=== PATIENT | male | born 1990 | race Caucasian/White ===

== ENCOUNTER 2019-09-25 11:10 | Outpatient (CLI) | payer OTHER ==
--- NOTE | 2019-09-25 11:19 | RAD ---
Exam:3 views left hand HISTORY: Pain COMPARISON: None FINDINGS: Preserved joint spaces. No fracture, cortical irregularity or periosteal IMPRESSION: No fracture.
== END 2019-09-25 11:11 | disposition home or self-care (01) ==
LOC: RAD-FRANK 11:10
PROVIDERS: ATTEND Nurse Practitioner Family
DX: M79.642 Pain in left hand (principal)